=== PATIENT | female | born 1990 | race Caucasian/White ===

== ENCOUNTER 2020-02-01 21:29 | Outpatient (CLI) | payer BC ==
[~2020-02-01] VITALS: Ht 165.1 cm; Wt 81.8 kg
--- NOTE | 2020-02-01 21:34 | NUR ---
2133- PT PRESENTS TO LDR COMPLAINING OF CONTRACTIONS, AMBULATORY TO ROOMM LR4, CHANGED INTO GOWN. 2141- EFM X2 APPLIED. PT DENIES LEAKING FLUID OR VAGINAL BLEEDING. STATES SHE IS FEELING THE BABY MOVE. CONTRACTIONS FOR THE LAST 2 HOURS. 2149- SVE BY THIS NURSE 4-/-2. PT IS VERY UNCOMFORTABLE WITH EXAM AND IT TAKES A LONG TIME FOR PT TO RELAX ENOUGH FOR NURSE TO CHECK CERVIX. WHEN NURSE ASKS IF PT HAS BEEN VERY ANXIOUS ABOUT HAVING HER CERVIX CHECKED, SHE STATES THAT IT MAKES HER HIGHLY ANXIOUS AND UNCOMFORTABLE. REASSURANCE PROVIDED. AND QUESTIONS ANSWERED. PLAN OF CARE FOR LABOR CHECK DISCUSSED. 2199- ORAL HYDRATION PROVIDED. NURSING ADMISSION HISTORY AND ASSESSMENT COMPLETE. 2300- DISCUSSED WITH PT THAT NURSE WOULD LIKE TO WATCH BABY ON MONITOR FOR A WHILE LONGER AND WILL CHECK PT LATER THAN THE HOUR TALKED ABOUT. PT OK WITH THIS PLAN. 2330- SVE BY THIS NURSE WITH NO CHANGE. ONCE AGAIN PT IS SO UNCOMFORTABLE WITH EXAM THAT IT TAKES A VERY LONG TIME, PT IS VERY TENSE AND CRYING. NURSE PROVIDES REASSURANCE AND DISCUSSES POSSIBLE CAUSES OF PT DISCOMFORT. PT STATES SHE IS VERY MODEST, EASILY EMBARRASSED ABOUT THE SUBJECT, AND DOES NOT USE TAMPONS DUE TO DISCOMFORT. ENCOURAGED PT TO BE UP FRONT ABOUT THIS WITH NURSES IN FUTURE TO DECREASE HER DISCOMFORT WITH EXAMS, AND ALSO DISCUSS WITH HER OB DR. 2345- DR URENA UPDATED CHARTED, ORDER FOR DISMISSAL RECEIVED. 2351- PT OFF MONITORS FOR DISMISSAL. 2359- DISMISSAL INSTRUCTIONS GIVEN AND QUESTIONS ANSWERED. PT VERBALIZES UNDERSTANDING. PT DISMISSED TO HOME AMBULATORY ACCOMPANIED BY .
[2020-02-01 22:00] VITALS: BP 125/89; PULSE 97; TEMP 98
[2020-02-01] MEDS ORDERED: PRENATAL VITAMI1 TA3 PO (22:06)
== END 2020-02-01 23:59 | disposition home or self-care (01) ==
LOC: LDRO 21:29 → LDR 23:51 → LDRO 23:59
DX: O62.9 Abnormality of forces of labor, unspecified (principal); Z3A.38 38 weeks gestation of pregnancy
CPT/HCPCS: OP

== ENCOUNTER → 2020-02-10 | Outpatient (CLI) | payer BC ==
[~2020-02-10] MED LIST: IBU600 MG PO; PERCOCET 325 MG1 TA2 PO; PRENATAL VITAMI1 TA3 PO
== END ==
LOC: ZCOL.LAB
DX: Z20.828 Contact with and (suspected) exposure to other viral communicable diseases (principal)

== ENCOUNTER 2020-02-16 02:29 | Inpatient (IN) | payer BC ==
[~2020-02-16] VITALS: Ht 165.1 cm; Wt 82.9 kg
[2020-02-16] VITALS (25 sets, daily range): BP systolic 96–159; BP diastolic 55–100; PULSE 57–121; TEMP 98–99.2
[~2020-02-16 02:29] MED LIST changes: -IBU600 MG PO; -PERCOCET 325 MG1 TA2 PO
--- NOTE | 2020-02-16 02:30 | NUR ---
PT ARRIVED TO UNIT WITH COMPLAINTS OF CONTRACTIONS THAT HAVE BECOME MORE INTENSE. PT VERY ANXIOUS, NOT TOLERATING CONTRACTIONS WELL, STATES CONCERNS OF INCREASED BLEEDING. BLOODY SHOW NOTED UPON VISUAL EXAM. REASSURED PT THAT THIS IS NORMAL. PT STATES EXTREME ANXIETY ABOUT ABOUT SVE, THIS NURSE ATTEMPTED TO COMFORT PT PRIOR TO EXAM AND PROVIDE INFORMATION ABOUT WHAT TO EXPECT. THIS NURSE ABLE TO PERFORM EXAM BUT PT REMAINED EXTREMELY TENSE THROUGHOUT AND FOLLOWING THE EXAM. COACHED PT ON SLOWING HER BREATHING BETWEEN AND DURING CONTRACTIONS. BP READING ELEVATED PT IS UNABLE TO SIT STILL DUE TO DISCOMFORT WITH CONTRACTIONS. PT REQUESTING EPIDURAL.
[2020-02-16 03:28] LABS: HEMATOCRIT 38.9 % (37.0-47.0); HEMOGLOBIN 13.1 g/dl (12.5-16.0); MEAN CELL VOLUME 87 fl (80.0-100.0); MEAN CORPUSCULAR HEMOGLOBIN 29 pg (27.0-31.0); MEAN CORPUSCULAR HGB CONC 34 g/dl (33.0-37.0); MEAN PLATELET VOLUME 12.2 fl (7.4-10.4); PLATELET COUNT 175 K/mm3 (130-400); RED BLOOD COUNT 4.47 M/mm3 (4.10-5.30); REDCELL DISTRIBUTION WIDTH-CV 13.4 % (11.5-14.5)
--- NOTE | 2020-02-16 03:43 | NUR ---
0335- PT SITTING UP AT BEDSIDE FOR EPIDURAL PLACEMENT. 0336- Kaur.DOMONIQUE DC IN ROOM FOR EPIDURAL PLACEMENT. 0343- SINGLE SHOT GIVEN, PT TOLERATED WELL.
[2020-02-16 04:05] LABS: BAND 4 % (0-10); LYMPHOCYTE 18 % (20.0-51.0); NEUTROPHILS 69 % (42.0-75.2)
[2020-02-16 04:06] LABS: PLATELET ESTIMATE NORMAL (NORMAL)
[2020-02-16 07:02] LABS: COLLECTION METHOD IN
--- NOTE | 2020-02-16 07:15 | NUR ---
0715- THIS RN TO BEDSIDE FOR PRACTICE PUSHING. RN REMAINS IN ROOM.
[2020-02-16 07:16] LABS: ALBUMIN 3.3 gm/dL (3.5-5.0); BILIRUBIN,TOTAL 0.3 mg/dL (0.0-1.0); CALCIUM 8.7 mg/dL (8.4-10.2); CREATININE, serum 0.88 (0.52-1.25); POTASSIUM 4.4 mmol/L (3.4-5.0); TOTAL PROTEIN 6.4 gm/dL (6.4-8.2)
[2020-02-16 07:44] LABS: PH 6 (5-8); SQUAMOUS EPITHELIAL 0-2 /hpf; URINE APPEARANCE Hazy; URINE BACTERIA Rare /hpf; URINE BILIRUBIN Negative (NEGATIVE); URINE BLOOD 3+ (NEGATIVE); URINE COLOR Yellow; URINE GLUCOSE Negative (NEGATIVE); URINE KETONE Negative (NEGATIVE); URINE LEUKOCYTE ESTERASE Negative (NEGATIVE); URINE NITRATE Negative (NEGATIVE); URINE PROTEIN(semi-quant) 1+ (NEGATIVE); URINE RBC >50 /hpf; URINE UROBILINOGEN Negative (NEGATIVE)
--- NOTE | 2020-02-16 08:09 | NUR ---
0809- THIS RN CALLED BACK UP DOCTOR FOR DELIVERY, SEE PHYSICIAN NOTIFICATION. 0820- DR. MENDOZA ON UNIT AND REVIEWING CHART. 0823- DR. MENDOZA TO BEDSIDE. SEES PRACTICE PUSH WITH THIS RN AND SAYS WE ARE READY FOR DELIVERY AND TO BREAK DOWN THE BED. THIS RN BREAKS DOWN THE BED AND CALLS APPROPRIATE STAFF FOR DELIVERY. 0830- FIRST PUSH WITH DR. MENDOZA. 0834- OF VIABLE MALE INFANT. PLACED TO MOTHERS ABDOMEN WHERE NURSERY NURSE ASSUMES CARE AT THIS TIME. INFANT THEN TAKEN TO WARMER TO BE FURTHER ASSESSED. THICK MECONIUM SEEN WITH DELIVERY. 0844- OF PLACENTA. FUNDUS MASSAGED TO FIRM BY PROVIDER WITH MODERATE AMOUNT OF BRIGHT RED BLOOD AND SOME CLOTS NOTED. PITOCIN TURNED ON PER PROTOCL AT 333ML/HR. 4TH DEGREE NOTED BY PROVIDER. 0850- UTERINE ATONY NOTED BY PROVIDER WHEN NOT PUSHING AND FREE FLOW BLOOD NOTED. ASKED FOR METHERGINE IM. CALLED CHARGE NURSE. 0851- MERTHERGINE GIVEN IM IN THE LEFT THIGH. CONTINUES REPAIR. 0915- REPAIRS DONE, FUNDUS FIRM, MODERATE AMOUNT OF BLOOD NOTED WITH LARGE CLOTS. VITALS TAKEN, RECOVERY STARTED. EBL NOTED TO BE 600 BY PROVIDER.
--- NOTE | 2020-02-16 10:45 | NUR ---
CARE OF THE PT ASSUMED AT THIS TIME. FUNDUS FIRM WITH MINIMAL BLEEDING OBSERVED. PT HAVING A SNACK. REPORTING SMALL AMOUNT OF PAIN. WILL START ON PAIN MEDICATION PT HAS FOURTH DEGREE REPAIR. PT AGREES. FEELING IN LEGS RETURNING.
--- NOTE | 2020-02-16 11:15 | NUR ---
IV TO INT AT THIS TIME. EPIDURAL CATHETER REMOVED. AMBULATES TO BATHROOM WITH ASSISTANCE. VOIDS WITHOUT DIFFICULTY. PERICARE PERFORMED. NEW PERIPAD, ICE PACK, UNDERWEAR, AND GOWN IN PLACE. FELT LIGHTHEADED AFTER VOIDING. TRANSFERRED TO WHEELCHAIR AND THEN TO ROOM. ADVISED PT TO HAVE NURSE WITH HER WHEN SHE NEEDS TO GET UP TO THE BATHROOM AND PT VERBALIZES UNDERSTANDING.
[2020-02-17] VITALS: BP 128/77; PULSE 81; TEMP 98.4
[2020-02-17 04:00] VITALS: BP 132/77; PULSE 88; TEMP 98.2
[2020-02-17 09:10] VITALS: BP 124/79; PULSE 96; TEMP 97.9
--- NOTE | 2020-02-17 09:36 | NUR ---
Initial visit; Dad thanked for offering congratulations to his family for the of their son. thanked family for choosing [facility]/ [address].
[2020-02-17 15:35] VITALS: BP 111/72; PULSE 91; TEMP 97.5
[2020-02-17 21:35] VITALS: BP 127/67; PULSE 104; TEMP 98
[2020-02-18 07:51] VITALS: BP 122/80; PULSE 96; TEMP 97.6
[2020-02-18 08:48] LABS: BASO % 0.3 % (0.0-2.0); EOS # 0.3 (0.0-0.7); EOS % 2.7 % (0-4.0); GRAN # 8.2 (1.4-6.5); GRAN % 66.4 % (42.2-75.2); LYMPH # 2.8 (1.2-3.4); LYMPH % 22.6 % (20.0-51.0); MEAN CORPUSCULAR HGB CONC 33 g/dl (33.0-37.0); MEAN PLATELET VOLUME 11.6 fl (7.4-10.4); MONO # 0.9 (0.1-0.6); MONO % 7.2 % (1.7-9.3); PLATELET COUNT 162 K/mm3 (130-400); REDCELL DISTRIBUTION WIDTH-CV 13.9 % (11.5-14.5)
[2020-02-18 08:55] LABS: HEMATOCRIT 25.8 % (37.0-47.0); MEAN CORPUSCULAR HEMOGLOBIN 30 pg (27.0-31.0)
[2020-02-18 08:58] LABS: HEMOGLOBIN 8.5 g/dl (12.5-16.0); MEAN CELL VOLUME 92 fl (80.0-100.0)
[2020-02-18] MEDS ORDERED: IBU600 MG PO (10:17)
[2020-02-18] MEDS ORDERED: PERCOCET 325 MG1 TA2 PO (10:17)
== END 2020-02-18 16:35 | disposition home or self-care (01) | DRG 768 ==
LOC: LDRO 02:29 → LDR 03:18 → OB 03:18
PROVIDERS: Obstetrics & Gynecology; ADMIT Student in an Organized Health Care Education/Training Program
PROC: 10E0XZZ Delivery of Products of Conception, External Approach (ICD-10-PCS; principal; 2020-02-16)
PROC: 0DQP0ZZ Repair Rectum, Open Approach (ICD-10-PCS; 2020-02-16)
DX: O48.0 Post-term pregnancy (principal); Z37.0 Single live birth; O70.3 Fourth degree perineal laceration during delivery; O77.0 Labor and delivery complicated by meconium in amniotic fluid; Z3A.40 40 weeks gestation of pregnancy
CPT/HCPCS: J2210; J2590; J2795; J7120

== ENCOUNTER → 2020-02-26 | Outpatient (CLI) | payer BC ==
[~2020-02-26] MED LIST changes: +IBU600 MG PO; +PERCOCET 325 MG1 TA2 PO
--- NOTE | 2020-02-26 16:06 | NUR ---
Pt, Milena Reynaga, presents for outpatient consult with 10 day old baby boy, Luca Reynaga, for a evaluation because the last few day Luca has not been content after . Luca was born on 02/16/2020 and weighed 8#5.7oz, (3790 gms). At discharge from the hospital they were supplementing via SNS because Luca was not content with alone. He also used the nipple shield for better latch. Luca was seen on 02/20/[address] Ferrera and his weigh was reported to be 7#14oz. They tapered the supplement off over the next couple days. Over the last 2-3 days Luca has become more discontent after feeding and is going to breast very frequently. Pt reports voids and stools WNL, that she can feel breast fullness prior to feeds when he goes more than 2 hours between. Today Luca weighs 8#1.7oz (3678 gms), a gain of 3.7oz in 6 days. He has had 1-2 oz supplement each of the last two days. LC assist with latching, Luca does not latch until the shield is placed. Swallows are noted at first, but do not sustain for very long. At this point the nipple shield was removed and Luca latched without it. Several swallows were noted and continued for a reasonable period of time. After nursing the right breast Luca had a weight gain of 2.4oz (66gms), and the left was 0.5oz (14 gms). After a couple bowel movements, he was brought back to the breast adn pt was instructed on laid back nursing. Lcua latches with a little help, does a fair amount of time, and has an additional weight gain of 0.6oz (18 gms). Total gain was 3.4oz (98 gms). He appears content. POC: continue ad torres, trying to nurse without the shield, but starting with if latch difficult, then remove part way through feeding. F/U: Tomorrow with Dr. Hough for Dr. Ferrera. Pt to contact this LC with weight and to modify plan of care as needed. Questions invited and answered.
== END ==
LOC: LAC 14:31
DX: Z39.1 Encounter for care and examination of lactating mother (principal); Z71.89 Other specified counseling